=== PATIENT | female | born 1980 | race Caucasian/White ===

== ENCOUNTER 2021-07-28 17:29 | Emergency (ER) | payer BC, OTHER ==
[2021-07-28 18:46] LABS: HEMOGLOBIN 13.6 gm/dl (12.3-15.3); RED BLOOD COUNT 4.29 M/UL (4.00-5.10); WHITE BLOOD COUNT 4.4 K/UL (4.5-11.0)
[2021-07-28 19:29] LABS: BUN/CREATININE RATIO 24 (0-10)
[2021-07-28] MEDS ORDERED: BENZONATATE200 MG PO (19:44)
== END 2021-07-28 20:01 | disposition home or self-care (01) ==
LOC: ER1 17:29
PROVIDERS: Preventive Medicine Occupational Medicine
DX: U07.1 COVID-19 (principal)
CPT/HCPCS: 71045; 80053; 82550; 82553; 83874; 84484; 85025; 86140; 99284; J7030

== ENCOUNTER → 2021-09-17 | Outpatient (CLI) | payer BC, OTHER ==
[~2021-09-17] MED LIST: BENZONATATE200 MG PO
== END ==
LOC: MAMO 09:22
DX: Z12.31 Encounter for screening mammogram for malignant neoplasm of breast (principal); N63.11 Unspecified lump in the right breast, upper outer quadrant
CPT/HCPCS: 77063; 77067

== ENCOUNTER → 2021-10-11 | Outpatient (CLI) | payer BC, OTHER | LOC: MAMO 09:41 | DX: R92.8 Other abnormal and inconclusive findings on diagnostic imaging of breast (principal); N60.01 Solitary cyst of right breast | CPT/HCPCS: 76641-RT; 77065; G0279 ==